=== PATIENT | female | born 1975 | race Caucasian/White ===

== ENCOUNTER 2018-10-23 19:19 | Emergency (ER) | payer BC ==
[2018-10-23] MEDS ORDERED: IBUPROFEN 600 MG TABLET PO ONE (20:11)
[2018-10-23] MEDS ORDERED: ACETAMINOPHEN 325 MG TABLET PO ONE (20:11)
--- NOTE | 2018-10-23 20:13 | ER Document Report ---
HPI - HPI Time Seen by Provider: 10/23/18 19:59 Pain Level: 4 Context: Patient is a 42-year-old female who presents the emergency department with a chief complaint of left hand pain. She noted some redness to the area yesterday and she also noted some swelling. She cannot recall whether or not she hit her hand or not. The redness is localized between her second and fourth metatarsal carpal area on the dorsal aspect. She took some Motrin yesterday to help with t he pain, but woke up and noticed some additional swelling. She was worried that she might possibly have a blood clot, therefore she came to the emergency department. - CONSTITUTIONAL Constitutional: DENIES: Fever, Chills - RESPIRATORY Respiratory: DENIES: Trouble Breathing - REPRODUCTIVE Reproductive: DENIES: : - MUSCULOSKELETAL Musculoskeletal: REPORTS: Extremity pain - top of left hand - DERM Skin Color: Normal, Erythema - To the left dorsal aspect of hand Skin Problems: None Past Medical History - Social History Smoking Status: Current Every Day Smoker Chew tobacco use (# tins/day): No Frequency of alcohol use: Rare Drug Abuse: None Family History: Reviewed & Not Pertinent Patient has suicidal ideation: No Patient has homicidal ideation: No Neurological Medical History: Reports: Hx Migraine Endocrine Medical History: Reports: Hx Diabetes Mellitus Type 2 - Diet and exercised controlled Renal/ Medical History: Denies: Hx Peritoneal Dialysis Past Surgical History: Reports: Hx Section - x1 - Immunizations Hx Diphtheria, Pertussis, Tetanus Vaccination: No - > 10 yrs Vertical Provider Document - HEENT HEENT: Atraumatic - NECK Neck: Normal Inspection - RESPIRATORY Respiratory: Breath Sounds Normal, No Respiratory Distress - CARDIOVASCULAR Cardiovascular: Regular Rate, Regular Rhythm Pulses: Normal: Radial - MUSCULOSKELETAL/EXTREMETIES Musculoskeletal/Extremeties: FROM - NEURO Level of Consciousness: Awake, Alert, Appropriate Motor/Sensory: No Motor Deficit, No Sensory Deficit - DERM Integumentary: Warm, Dry, Rash - Dorsal aspect of left hand Course - Re-evaluation Re-evalutation: Patient presents with symptoms most consistent with an acute cellulitis. Vitals within normal limits. Patient does not meet sepsis criteria is overall very well in appearance. Exam and history are not consistent with DVT. Patient will be started on clindamycin. The patient's x-rays is negative for any acute fracture. At this time will discharge with return precautions and follow-up recommendations. Verbal discharge instructions were given to the patient. They verbalized understanding. They are stable for discharge. - Vital Signs Vital signs: Temp Pulse Resp BP Pulse Ox 99.3 F 93 16 147/84 H 98 10/23/18 19:39 10/23/18 19:39 10/23/18 19:39 10/23/18 19:39 10/23/18 19:39 Discharge - Discharge Clinical Impression: Left hand pain Cellulitis Qualifiers: Site of cellulitis: extremity Site of cellulitis of extremity: upper extremity Laterality: left Qualified Code(s): L03.114 - Cellulitis of left upper limb Condition: Stable Disposition: HOME, SELF-CARE Additional Instructions: You were seen here in the emergency department for left hand pain. You have cellulitis. You will be given antibiotics to help with your cellulitis. Please take all your medication as prescribed. Please follow-up with your primary care provider in regards to this visit. Prescriptions: Clindamycin HCl [Cleocin 150 mg Capsule] 300 mg PO Q6 7 Days #56 capsule Referrals: COURT CULVER MD [Primary Care Provider] - Follow up as needed
--- NOTE | 2018-10-23 21:29 | RADIOLOGY REPORT (SQ) ---
3 VIEWS OF THE LEFT HAND HISTORY: Joint pain. COMPARISON: None. FINDINGS: No acute fracture is seen. The joint spaces are preserved. The soft tissues are unremarkable. IMPRESSION: No acute fracture or dislocation.
[2018-10-23] MEDS ORDERED: CLINDAMYCIN HCL 150 MG CAPSULE PO ONE (21:35)
[2018-10-23 22:17] VITALS: BP 132/90
== END 2018-10-23 21:50 | disposition home or self-care (01) ==
LOC: ER 19:19
DX: M79.642 Pain in left hand (principal); L03.114 Cellulitis of left upper limb; F17.200 Nicotine dependence, unspecified, uncomplicated
CPT/HCPCS: 99283

== ENCOUNTER → 2019-08-16 | Outpatient (CLI) | payer BC ==
--- NOTE | 2019-08-17 09:34 | WOMENS IMAGING REPORT ---
EXAM DESCRIPTION: 3D SCREENING MAMMO BILAT COMPLETED DATE/TIME: 08/16/2019 3:52 pm REASON FOR STUDY: Z12.31 SCREENING MAMMO Z12.31 ENCNTR SCREEN MAMMOGRAM FOR MALIGNANT NEOPLASM OF B RE COMPARISON: None. EXAM PARAMETERS: Views: Standard craniocaudal and mediolateral oblique views of each breast recorded using digital acquisition and breast tomosynthesis. Read with the assistance of CAD. .[facility], LATER [facility] - [employer] Version 9.2 LIMITATIONS: None. FINDINGS: No suspicious masses, suspicious calcifications or architectural distortion. No areas of c oncern. IMPRESSION: NEGATIVE MAMMOGRAM. BIRADS 1. BREAST DENSITY: b. There are scattered areas of fibroglandular density. BIRAD: ASSESSMENT: 1 NEGATIVE RECOMMENDATION: ROUTINE SCREENING COMMENT: The patient has been notified of the results by letter per MQSA requirements. Additional no tification policies are in place for contacting patient with suspicious or incomplete findings. Quality ID #[id number]: The [employer] recommends an annual screening mammogram for women aged 40 years or over. This facility utilizes a reminder system to ensure that all patients receive reminder letters, and/or direct phone calls for appointments. This includes reminders for routine scr eening mammograms, diagnostic mammograms, or other Breast Imaging Interventions when appropriate. Th is patient will be placed in the appropriate reminder system. TECHNICAL DOCUMENTATION: FINDING NUMBER: (1) ASSESSMENT: (1) JOB ID: [id number] [employer]- All Rights Reserved Reading location - IP/workstation name: [email or web address]
== END ==
LOC: WI 15:30
PROVIDERS: ATTEND Obstetrics & Gynecology Gynecology
DX: Z12.31 Encounter for screening mammogram for malignant neoplasm of breast (principal)
CPT/HCPCS: 77063; 77067